=== PATIENT | male | born 1970 | race African-American/Black ===

== ENCOUNTER 2019-01-18 13:52 | Observation (INO) | payer OTHER, SELFPAY ==
[2019-01-18 14:29] LABS: Protime INR 1.01
[2019-01-18 14:30] LABS: Absolute Lymphocytes (CBC) 1.8 K/uL (0.7-4.9); Basophils % 1.1 % (0-1.3); Hematocrit 39.9 % (39.6-49.0); MPV 8.3 fL (7.6-11.3); RBC Red Blood Cell Count 4.46 M/uL (4.33-5.43)
--- NOTE | 2019-01-18 14:36 | RAD REPORT ---
EXAM DESCRIPTION: RAD - Chest Single View - 01/18/2019 2:29 pm CLINICAL HISTORY: COUGH Chest pain. COMPARISON: No comparisons FINDINGS: Portable technique limits examination quality. The lungs are grossly clear. The heart is upper limit of normal in size. No displaced fractures. IMPRESSION: No acute intrathoracic process suspected.
[2019-01-18] MEDS ORDERED: AMLODIPINE 5 MG TAB ONE (14:43)
[2019-01-18] MEDS ORDERED: LISINOPRIL 10 MG TAB ONE ×2 (14:43→15:44)
[2019-01-18 14:58] LABS: Albumin 3.9 g/dL (3.4-5.0); Bilirubin Direct 0.1 mg/dL (0-0.2); Bilirubin Total 0.4 mg/dL (0.2-1.0); Magnesium 2.3 mg/dL (1.8-2.4); Potassium 3.3 mmol/L (3.5-5.1); Protein, Total 7.9 g/dL (6.4-8.2); Troponin (Emerg Dept Use Only) 0.05 ng/mL (0.0-0.045)
--- NOTE | 2019-01-18 15:09 | ER ---
Nurse's Notes [facility] Name: Shu Horta Age: 48 yrs Sex: Male : 1970 Arrival Date: 01/18/2019 Time: 13:54 Bed 6 Private MD: Diagnosis: Dizziness and giddiness;Weakness;Essential (primary) hypertension-elevated troponin;Hypokalemia Presentation: 01/18 13:55 Presenting complaint: EMS states: "pt was sitting at a class at the [employer] when he aa5 started feeling dizzy, the initial blood pressure was 212/140 and now the patient has no complaints". Pt has not taken home meds for approximately 10 days. Transition of care: patient was not received from another setting of care. Onset of symptoms was January 18, 2019. Risk Assessment: Do you want to hurt yourself or someone else? Patient reports no desire to harm self or others. Initial Sepsis Screen: Does the patient meet any 2 criteria? No. Patient's initial sepsis screen is negative. Does the patient have a suspected source of infection? No. Patient's initial sepsis screen is negative. Care prior to arrival: IV initiated. 20 GA, in the left antecubital area, Glucose check: 140. 13:55 Acuity: KANDACE 3 aa5 13:55 Method Of Arrival: EMS: [facility] aa5 Historical: - Allergies: 13:58 No Known Allergies; aa5 - Home Meds: 13:58 Lisinopril Oral [Active]; amlodipine oral [Active]; aa5 - PMHx: 13:58 Hypertension; aa5 - PSHx: 13:58 None; aa5 - Immunization history:: Adult Immunizations unknown. - Social history:: Smoking status: Patient/guardian denies using tobacco. - Ebola Screening: : No symptoms or risks identified at this time. - Family history:: not pertinent. Screenin:59 Abuse screen: Denies threats or abuse. Nutritional screening: No deficits noted. aa5 Tuberculosis screening: No symptoms or risk factors identified. Fall Risk None identified. Assessment: 14:00 General: Appears comfortable, Behavior is calm, cooperative. Pain: Denies pain. Neuro: aa5 Level of Consciousness is awake, alert, obeys commands, Oriented to person, place, time, situation, Denies dizziness. Cardiovascular: Heart tones S1 S2 present Rhythm is regular. Respiratory: Airway is patent Respiratory effort is even, unlabored, Respiratory pattern is regular, symmetrical. GI: No signs and/or symptoms were reported involving the gastrointestinal system. : No signs and/or symptoms were reported regarding the genitourinary system. EENT: No signs and/or symptoms were reported regarding the EENT system. Derm: Skin is dry, Skin is normal, Skin temperature is warm. Musculoskeletal: Range of motion: intact in all extremities. 14:30 Reassessment: Patient denies pain at this time. Pt sitting up in bed, awaiting lab aa5 results, pt notified of wait time. Pt denies any symptoms at this time. . 16:20 Neuro: Level of Consciousness is awake, alert, obeys commands, Oriented to person, aa5 place, time, situation. Respiratory: Airway is patent Respiratory effort is even, unlabored, Respiratory pattern is regular, symmetrical. Derm: Skin is dry, Skin is normal, Skin temperature is warm. 16:20 General: Appears comfortable. Cardiovascular: Rhythm is sinus rhythm. aa5 16:22 Reassessment: Dr. Burrows (Hospitalist) at bedside . aa5 17:05 Reassessment: Food tray given, pt awaiting room assignment. aa5 17:52 Neuro: Level of Consciousness is awake, alert, obeys commands, Oriented to person, aa5 place, time, situation. Cardiovascular: Rhythm is sinus rhythm. Respiratory: Airway is patent Respiratory effort is even, unlabored, Respiratory pattern is regular, symmetrical. Derm: Skin is dry, Skin is normal, Skin temperature is warm. Vital Signs: 13:55 BP 168 / 110; Pulse 60; Resp 16 S; Temp 98.0(O); Pulse Ox 99% on R/A; Weight 108.86 kg aa5 (R); Height 5 ft. 8 in. (172.72 cm) (R); Pain 0/10; 14:30 BP 163 / 103; Pulse 64; Resp 16 S; Pulse Ox 98% on R/A; aa5 15:28 BP 159 / 104; Pulse 61; Resp 18 S; Pulse Ox 99% on R/A; Pain 0/10; aa5 16:20 BP 166 / 109; Pulse 70; Resp 18 S; Pulse Ox 100% on R/A; Pain 0/10; aa5 17:30 BP 165 / 107; Pulse 68; Resp 18 S; Temp 98.0(TE); Pulse Ox 98% on R/A; Pain 0/10; aa5 13:55 Body Mass Index 36.49 (108.86 kg, 172.72 cm) aa5 ED Course: 13:54 Patient arrived in ED. aa5 13:54 Regine Mackey, RN is Primary Nurse. aa5 13:54 Arm band placed on. aa5 13:54 Patient has correct armband on for positive identification. Bed in low position. Call aa5 light in reach. Side rails up X2. 13:54 EKG done, by lead manufacturing technician. aa5 13:57 Triage completed. aa5 14:00 threat monitoring analyst on. Pulse ox on. NIBP on. aa5 14:01 No provider procedures requiring assistance completed. aa5 14:02 Elliott Delgado MD is Attending Physician. [facility] 14:15 Initial lab(s) drawn, by ms, sent to lab. Maintain EMS IV. Dressing intact. Good blood ph return noted. Site clean \\T\\ dry. Gauge \\T\\ site: 20 LAC. 14:31 XRAY Chest (1 view) In Process Unspecified. EDMS 15:07 Leno Burrows MD is Hospitalizing Provider. vance 17:54 Patient admitted, IV remains in place. aa5 Administered Medications: 14:04 CANCELLED (Duplicate Order): NS 0.9% 1000 ml IV at 1 bolus Per protocol; 1000 mL bolus vance 14:31 Drug: Norvasc 10 mg Route: PO; aa5 15:28 Follow up: Response: No adverse reaction aa5 14:31 Drug: Lisinopril 10 mg Route: PO; aa5 15:28 Follow up: Response: No adverse reaction aa5 15:28 Drug: Aspirin 325 mg Route: PO; aa5 16:24 Follow up: Response: No adverse reaction aa5 15:28 Drug: Lisinopril 10 mg Route: PO; aa5 16:24 Follow up: Response: No adverse reaction aa5 15:28 Drug: Potassium Effervescent Tablet 50 mEq Route: PO; aa5 16:24 Follow up: Response: No adverse reaction aa5 Outcome: 15:08 Decision to Hospitalize by Provider. vance 17:53 Admitted to Tele accompanied by tech, via wheelchair, with chart, Report called to aa5 VAMSHI Rudd 17:53 Condition: stable 17:53 Instructed on the need for admit, Demonstrated understanding of instructions. 17:55 Patient left the ED. aa5 Signatures: Dispatcher [employer] EDElliott Killian MD MD cha Calderon, Audri, RN RN [email or web address] Tiffanie Graham RN RN ph Corrections: (The following items were deleted from the chart) 13:59 13:55 Presenting complaint: EMS states: "pt was sitting at a class at the [employer] when aa5 he started feeling dizzy, the initial blood pressure was 212/140 and now the patient has no complaints" aa5 14:00 13:55 Care prior to arrival: None. aa5 aa
--- NOTE | 2019-01-18 15:09 | EDPHYS ---
Physician Documentation [facility] Name: Shu Horta Age: 48 yrs Sex: Male : 1970 Arrival Date: 01/18/2019 Time: 13:54 Bed 6 Private MD: ED Physician Elliott Delgado HPI: 01/18 15:04 This 48 yrs old Black Male presents to ER via EMS with complaints of High Blood vance Pressure. 15:04 The patient has elevated blood pressure and discovered this at home. Onset: The vance symptoms/episode began/occurred 1 day(s) ago. Modifying factors: The symptoms are aggravated by activity, The symptoms are alleviated by remaining still. Onset: The symptoms/episode began/occurred today. Associated signs and symptoms: Pertinent positives: dizzy. Associated signs and symptoms: The patient has no apparent associated signs or symptoms. Severity of symptoms: At its worst the blood pressure was moderate, in the emergency department the blood pressure is unchanged. The patient has experienced similar episodes in the past, a few times. Historical: - Allergies: 13:58 No Known Allergies; aa5 - Home Meds: 13:58 Lisinopril Oral [Active]; amlodipine oral [Active]; aa5 - PMHx: 13:58 Hypertension; aa5 - PSHx: 13:58 None; aa5 - Immunization history:: Adult Immunizations unknown. - Social history:: Smoking status: Patient/guardian denies using tobacco. - Ebola Screening: : No symptoms or risks identified at this time. - Family history:: not pertinent. ROS: 15:04 Constitutional: Negative for fever, chills, and weight loss, Eyes: Negative for injury, vance pain, redness, and discharge, ENT: Negative for injury, pain, and discharge, Neck: Negative for injury, pain, and swelling, Cardiovascular: Negative for chest pain, palpitations, and edema, Respiratory: Negative for shortness of breath, cough, wheezing, and pleuritic chest pain, Abdomen/GI: Negative for abdominal pain, nausea, vomiting, diarrhea, and constipation, Back: Negative for injury and pain, : Negative for injury, bleeding, discharge, and swelling, MS/Extremity: Negative for injury and deformity, Skin: Negative for injury, rash, and discoloration, Psych: Negative for depression, anxiety, suicide ideation, homicidal ideation, and hallucinations, Allergy/Immunology: Negative for hives, rash, and allergies, Endocrine: Negative for neck swelling, polydipsia, polyuria, polyphagia, and marked weight changes, Hematologic/Lymphatic: Negative for swollen nodes, abnormal bleeding, and unusual bruising. 15:04 Neuro: Positive for dizziness. Exam: 15:04 Constitutional: This is a well developed, well nourished patient who is awake, alert, vance and in no acute distress. Head/Face: Normocephalic, atraumatic. Eyes: Pupils equal round and reactive to light, extra-ocular motions intact. Lids and lashes normal. Conjunctiva and sclera are non-icteric and not injected. Cornea within normal limits. Periorbital areas with no swelling, redness, or edema. ENT: Nares patent. No nasal discharge, no septal abnormalities noted. Tympanic membranes are normal and external auditory canals are clear. Oropharynx with no redness, swelling, or masses, exudates, or evidence of obstruction, uvula midline. Mucous membranes moist. Neck: Trachea midline, no thyromegaly or masses palpated, and no cervical lymphadenopathy. Supple, full range of motion without nuchal rigidity, or vertebral point tenderness. No Meningismus. Chest/axilla: Normal chest wall appearance and motion. Nontender with no deformity. No lesions are appreciated. Cardiovascular: Regular rate and rhythm with a normal S1 and S2. No gallops, murmurs, or rubs. Normal PMI, no JVD. No pulse deficits. Respiratory: Lungs have equal breath sounds bilaterally, clear to auscultation and percussion. No rales, rhonchi or wheezes noted. No increased work of breathing, no retractions or nasal flaring. Abdomen/GI: Soft, non-tender, with normal bowel sounds. No distension or tympany. No guarding or rebound. No evidence of tenderness throughout. Back: No spinal tenderness. No costovertebral tenderness. Full range of motion. Male : Normal genitalia with no discharge or lesions. Skin: Warm, dry with normal turgor. Normal color with no rashes, no lesions, and no evidence of cellulitis. MS/ Extremity: Pulses equal, no cyanosis. Neurovascular intact. Full, normal range of motion. Neuro: Awake and alert, GCS 15, oriented to person, place, time, and situation. Cranial nerves II-XII grossly intact. Motor strength 5/5 in all extremities. Sensory grossly intact. Cerebellar exam normal. Normal gait. Psych: Awake, alert, with orientation to person, place and time. Behavior, mood, and affect are within normal limits. 15:04 Musculoskeletal/extremity: DVT Exam: No signs of deep vein thrombosis. no pain, no swelling, no tenderness, negative Homans' sign noted on exam, no appreciated bluish discoloration, no erythema, no increased warmth. Vital Signs: 13:55 BP 168 / 110; Pulse 60; Resp 16 S; Temp 98.0(O); Pulse Ox 99% on R/A; Weight 108.86 kg aa5 (R); Height 5 ft. 8 in. (172.72 cm) (R); Pain 0/10; 14:30 BP 163 / 103; Pulse 64; Resp 16 S; Pulse Ox 98% on R/A; aa5 15:28 BP 159 / 104; Pulse 61; Resp 18 S; Pulse Ox 99% on R/A; Pain 0/10; aa5 16:20 BP 166 / 109; Pulse 70; Resp 18 S; Pulse Ox 100% on R/A; Pain 0/10; aa5 17:30 BP 165 / 107; Pulse 68; Resp 18 S; Temp 98.0(TE); Pulse Ox 98% on R/A; Pain 0/10; aa5 13:55 Body Mass Index 36.49 (108.86 kg, 172.72 cm) aa5 MDM: 14:02 Patient medically screened. [facility] 15:06 Data reviewed: vital signs, nurses notes, lab test result(s), EKG, radiologic studies, vance plain films. 01/18 14:03 Order name: Basic Metabolic Panel; Complete Time: 15:04 [facility] 01/18 14:03 Order name: CBC with Diff; Complete Time: 15:04 [facility] 01/18 14:03 Order name: LFT's; Complete Time: 15:04 [facility] 01/18 14:03 Order name: Magnesium; Complete Time: 15:04 [facility] 01/18 14:03 Order name: NT PRO-BNP; Complete Time: 15:04 [facility] 01/18 14:03 Order name: PT-INR; Complete Time: 15:04 [facility] 01/18 14:03 Order name: Troponin (emerg Dept Use Only); Complete Time: 15:04 [facility] 01/18 14:03 Order name: XRAY Chest (1 view); Complete Time: 15:04 [facility] 01/18 15:52 Order name: Urine Dipstick--Ancillary (enter results); Complete Time: 17:17 01/18 14:03 Order name: EKG; Complete Time: 14:06 [facility] 01/18 14:03 Order name: Cardiac monitoring; Complete Time: 14:15 [facility] 01/18 14:03 Order name: EKG - Nurse/Tech; Complete Time: 14:24 [facility] 01/18 14:03 Order name: IV Saline Lock; Complete Time: 14:15 [facility] 01/18 14:03 Order name: Labs collected and sent; Complete Time: 14:15 [facility] 01/18 14:03 Order name: O2 Per Protocol; Complete Time: 14:15 [facility] 01/18 14:03 Order name: O2 Sat Monitoring; Complete Time: 14:15 [facility] 01/18 14:03 Order name: Urine Dipstick-Ancillary (obtain specimen); Complete Time: 15:51 [facility] 01/18 16:24 Order name: Diet Heart Healthy; Complete Time: 16:25 aa5 Administered Medications: 14:04 CANCELLED (Duplicate Order): NS 0.9% 1000 ml IV at 1 bolus Per protocol; 1000 mL bolus [facility] 14:31 Drug: Norvasc 10 mg Route: PO; aa5 15:28 Follow up: Response: No adverse reaction aa5 14:31 Drug: Lisinopril 10 mg Route: PO; aa5 15:28 Follow up: Response: No adverse reaction aa5 15:28 Drug: Aspirin 325 mg Route: PO; aa5 16:24 Follow up: Response: No adverse reaction aa5 15:28 Drug: Lisinopril 10 mg Route: PO; aa5 16:24 Follow up: Response: No adverse reaction aa5 15:28 Drug: Potassium Effervescent Tablet 50 mEq Route: PO; aa5 16:24 Follow up: Response: No adverse reaction aa5 Disposition: 01/18/19 15:08 Hospitalization ordered by Leon Burrows for Observation. Preliminary diagnosis are Dizziness and giddiness, Weakness, Essential (primary) hypertension - elevated troponin, Hypokalemia. - Bed requested for Telemetry/MedSurg (observation). - Status is Observation. aa5 - Condition is Stable. - Problem is new. - Symptoms have improved. UTI on Admission? No Signatures: Dispatcher [employer] EDMS Sindhu Landry Corey, MD MD cha Calderon, Audri, RN RN aa5 Corrections: (The following items were deleted from the chart) 14:04 14:03 NS 0.9% 1000 ml IV at 1 bolus Per protocol; 1000 mL bolus ordered. [facility] 15:27 15:08 Hospitalization Ordered by Leno Burrows MD for Observation. Preliminary diagnosis vance is Dizziness and giddiness; Weakness; Essential (primary) hypertension - elevated troponin. Bed requested for Telemetry/MedSurg (observation). Status is Observation. Condition is Stable. Problem is new. Symptoms have improved. UTI on Admission? No. vance 17:13 15:27 01/18/2019 15:08 Hospitalization Ordered by Leno Burrows MD for Observation. bd Preliminary diagnosis is Dizziness and giddiness; Weakness; Essential (primary) hypertension - elevated troponin; Hypokalemia. Bed requested for Telemetry/MedSurg (observation). Status is Observation. Condition is Stable. Problem is new. Symptoms have improved. UTI on Admission? No. vance 17:55 17:13 01/18/2019 15:08 Hospitalization Ordered by Leno Burrows MD for Observation. aa5 Preliminary diagnosis is Dizziness and giddiness; Weakness; Essential (primary) hypertension - elevated troponin; Hypokalemia. Bed requested for Telemetry/MedSurg (observation). Status is Observation. Condition is Stable. Problem is new. Symptoms have improved. UTI on Admission? No. bd
[2019-01-18] MEDS ORDERED: ASPIRIN 325 MG TAB ONE (15:44)
[2019-01-18] MEDS ORDERED: POTASSIUM 25 MEQ EFFERV TAB ONE (15:44)
[2019-01-18 16:59] LABS: Urine Blood NEGATIVE (NEG); Urine Glucose NEGATIVE (NEG); Urine Protein NEGATIVE (NEG); Urine Specific Gravity 1.015 (1.005-1.030)
[2019-01-18] MEDS ORDERED: ONDANSETRON 4 MG/2 ML VIAL IV PRN (17:44)
[2019-01-18] MEDS ORDERED: ACETAMINOPHEN 500 MG TAB PO PRN (17:44)
[2019-01-18] MEDS ORDERED: HYDRALAZINE HCL 20 MG/ML VIAL IV PRN (17:44)
[2019-01-18 18:12] VITALS: BMI 37.8
[2019-01-18] MEDS: ENOXAPARIN 40 MG/0.4 ML SQ SCH (21:18)
[2019-01-18] MEDS ORDERED: POTASSIUM CL SA 10 MEQ TAB PO ONE (23:37)
--- NOTE | 2019-01-19 00:10 | HP ---
Date of Admission: 01/18/2019 Code Status: Full. Chief Complaint: Dizziness, elevated blood pressure. Primary Care Physician: NINFA. History Of Present Illness: Patient is a 48-year-old male with past medical history of hypertension, who was in his usual state of health until day of admission when the patient suddenly had onset of d izziness. Denies any chest pain, nausea, vomiting, diaphoresis, or shortness of breath. No blurry v ision. Patient does report feeling lightheaded as well. Patient's blood pressure was elevated in th e 200s over 100s. Patient states that he has been out of his blood pressure medication for the past 10 days. He states his PCP is and was unable to get in to obtain refills. Patient's sympto ms are constant, moderate, progressively worsening. Patient was at work and was brought into the [facility] via EMS. Blood pressure from EMS was over 200 systolic over approximately 140 diastolic. He d id not receive any medications en route. By the time the patient reached hospital, he was given isha nopril and Norvasc and blood pressure improved to 160s over 100s. Workup revealed elevated troponin level 0.05. He had a low potassium of 3.3. His chest x-ray was clear. Patient was then referred fo admission due to his uncontrolled blood pressure that was symptomatic. When seen in the ER, he was awake, alert, oriented x3, in some mild distress. Past Medical History: Essential hypertension. Past Surgical History: None. Allergies: NO KNOWN DRUG ALLERGIES. Medications: Lisinopril and amlodipine. Social History: Patient denies any tobacco use or alcohol use. Patient is a , currently work s at [employer]. Family History: No history of premature coronary artery disease. Review of Systems: Ten-point system reviewed, negative except as per HPI. Physical Examination: Vital Signs: Blood pressure in the ER after treatment is 168/110, pulse 60, respirations 16, tempera ture 98, O2 of 99% on room air. BMI 36. General: Awake, alert, oriented x3, obese male. HEENT: Normocephalic, atraumatic. PERRLA. EOMI. Moist mucous membranes. Oropharynx is clear. Co njunctivae are anicteric. Normal dentition. Neck: Supple. No JVD. Trachea midline. CV: S1, S2. Regular rate and rhythm. Peripheral pulses present. Respiratory: Moving air well bilaterally. No wheezing or stridor. No use of accessory muscles. Gastrointestinal: Abdomen is soft, nontender, nondistended. Positive bowel sounds. No guarding or rigidity. Extremities: No clubbing, cyanosis, or edema. No calf tenderness. Neuro: Cranial nerves 2 through 12 intact grossly. No focal neurological deficits. Speech is rm l. Skin: No rashes. Normal skin turgor. Psych: Mood is okay. Affect is full. Insight and judgment are good. Laboratory Data: WBC 5.7, H and H of 13.5 and 39.9, platelets 279. INR 1.01. Sodium 137, potassium 3.3, chloride 106, CO2 of 26, BUN 11, creatinine 1.15, glucose 98, calcium 8, magnesium 2.3. Tropon in 0.05. Chest x-ray personally reviewed shows no acute cardiothoracic process identified. Assessment And Plan: A 48-year-old male with: 1.Hypertensive emergency. Patient is having dizziness, elevated troponin level 0.05. EKG shows vance nges consistent with left ventricular hypertrophy. Blood pressure is improved with oral medications. We will continue with hydralazine p.r.n. We will continue to monitor. Patient has a risk for stro ke and we will need to rule out acute coronary syndrome. 2.Elevated troponin level. We will repeat level to rule out acute coronary syndrome. Patient has a lready received aspirin and beta-mira. We will check lipid panel. 3.Obesity. BMI greater than 30. Counseled. 4.Hypokalemia. We will replace and monitor. We will check magnesium level. Plan: [facility]. /MODrTicia Voice ID: [id number]
[2019-01-19 04:40] LABS: Absolute Lymphocytes (CBC) 2.2 K/uL (0.7-4.9); Basophils % 1.4 % (0-1.3); Hematocrit 41.8 % (39.6-49.0); Lymphocytes % 34.2 % (15.3-44.8); RBC Red Blood Cell Count 4.63 M/uL (4.33-5.43)
[2019-01-19 05:04] LABS: Albumin 3.8 g/dL (3.4-5.0); Bilirubin Total 0.6 mg/dL (0.2-1.0); Magnesium 2.5 mg/dL (1.8-2.4); Potassium 3.9 mmol/L (3.5-5.1); Protein, Total 7.8 g/dL (6.4-8.2)
[2019-01-19] MEDS ORDERED: POTASSIUM CL SA 10 MEQ TAB PO ONE (06:00)
[2019-01-19] MEDS ORDERED: AMLODIPINE 10 MG TAB PO SCH ×2 (09:00)
[2019-01-19] MEDS ORDERED: LISINOPRIL 10 MG TAB PO SCH (09:00)
[2019-01-19] MEDS ORDERED: LISINOPRIL 20 MG TAB PO SCH (09:00)
[2019-01-19 09:16] VITALS: TEMP 98.1
[2019-01-19] MEDS: ENOXAPARIN 40 MG/0.4 ML SQ SCH (09:36)
--- NOTE | 2019-01-19 10:40 | EKG ---
Test Date: 2019-01-18 Test Time: 13:52:59 Clinical Informatics Specialist: LOLI MEASUREMENT RESULTS: Intervals: Rate: 59 OH: 220 QRSD: 96 QT: 406 QTc: 401 [place]: P: 33 OH: 220 QRS: 39 T: 23 INTERPRETIVE STATEMENTS: Sinus bradycardia with 1st degree AV block Otherwise normal ECG No previous ECG available for comparison Electronically Signed On 01-19-19 10:39:03 CDT by Mark Barlow
[2019-01-19 11:00] VITALS: BP 156/98
[2019-01-19 11:42] VITALS: O2SAT 94
--- NOTE | 2019-01-20 00:46 | DS ---
Date of Discharge: 01/19/2019 Discharge Diagnoses: 1.Hypertensive emergency. 2.Elevated troponin level. 3.Obesity, body mass index of 37. 4.Hypokalemia. Hospital Course: Patient is a 48-year-old male with past medical history of hypertension, comes in w ith dizziness. Patient was found to have elevated blood pressure 200s/100s. Patient was symptomatic , also had a troponin level that was increased at 0.05. He was admitted to the hospital to rule out TIA and also to rule out acute coronary syndrome. Patient also had low potassium level, which was re placed. Patient responded well to his oral medications, which he had run out of for the past couple of weeks. He was also started on p.r.n. hydralazine IV. Patient's dizziness improved. Chest x-ray was clear. His repeat troponin level was also again 0.05. Did not complain of any chest pain. Ther e was no acute ST elevation on EKG. Overall, the patient did well. During the course of the [facility] stay, he was able to ambulate without any difficulty, symptoms had resolved. Blood pressure was im proved. He was counseled regarding medication compliance and obtaining refills in a timely manner. He voiced understanding. Patient was discharged to home in a stable condition. Activity: As tolerated. Medications: As per medication reconciliation list. Followup: Follow up with primary care physician in 2 to 3 days. Return to the ER for worsening cond ition. Diet: Heart healthy. Activity: As tolerated. Physical Examination: General: Awake, alert, oriented, no acute distress. CV: S1, S2. No murmurs. Respiratory: Moving air well bilaterally. No wheezing. Gastrointestinal: Abdomen is soft, nontender, nondistended. Positive bowel sounds. Extremities: No clubbing, cyanosis, or edema. Neurologic: Nonfocal. SA/MODL Voice ID: [id number] Report ID: [id number]
== END 2019-01-19 11:30 | disposition home or self-care (01) ==
LOC: ER 13:52 → ERHOLD 16:01 → 4TH 17:46
PROVIDERS: ADMIT Family Medicine; ATTEND Family Medicine
DX: I16.1 Hypertensive emergency (principal); I10 Essential (primary) hypertension; E87.6 Hypokalemia; R79.89 Other specified abnormal findings of blood chemistry; I51.7 Cardiomegaly; I44.0 Atrioventricular block, first degree; R00.1 Bradycardia, unspecified; E66.9 Obesity, unspecified; Z68.30 Body mass index [BMI] 30.0-30.9, adult; Z79.899 Other long term (current) drug therapy
CPT/HCPCS: 36415; 71045; 80048; 80053; 80076; 81003; 83735; 83880; 84132; 84484; 85025; 85610; 93005; 94760; 99285; G0378; J0360; J1650